=== PATIENT | female | born 1960 | race Caucasian/White ===

== ENCOUNTER 2022-07-15 15:03 | Emergency (ER) | payer OTHER ==
[~2022-07-15] VITALS: Ht 170.2 cm; Wt 106.8 kg
[2022-07-15] MEDS ORDERED: SUCCINYLCHOLINE CHLORIDE 20 MG/ML VIAL IV ONE (15:09)
[2022-07-15] MEDS ORDERED: ROCURONIUM BROMIDE 50 MG/5 ML IV ONE ×2 (15:09)
[2022-07-15] MEDS ORDERED: ETOMIDATE 2 MG/ML VIAL IV ONE ×3 (15:09→18:30)
--- NOTE | 2022-07-15 15:20 | NUR ---
PT IS AWAKE AND FOLLOW COMMANDS PLACED INTO BIPAP DUE TO INCREASED WORK OF BREATHING. BIPAP PARAMETERS BELOW ORDER: IPAP 15 EPAP 5 RR 12 FIO2 60% BREATH SOUNDS DIMINISHED BILATERAL. SPO2 100% ON 60% FIO2 RR 49 BPM BIPAP PLUGGED INTO RED OUTLET WITH ALARMS ON AND FUNCTIONING BVM @ BEDSIDE Addendum: 07/15/22 at 1533 by CAMPOS GRIDER RT Amended: Links added.
--- NOTE | 2022-07-15 15:21 | NUR ---
BIBRA 60 SHORTNESS OF BREATH , LOW ON O2 SAT 80 @ RA . DIALYSIS PATIENT , LAST HD WAS SATURDAY .
--- NOTE | 2022-07-15 15:31 | NUR ---
RT AND X-RAY AT BEDSIDE
--- NOTE | 2022-07-15 15:31 | NUR ---
BLOOD SAMPLES OBTAINED
[2022-07-15] MEDS ORDERED: AMOX1TAB15 PO (15:44)
[2022-07-15] MEDS ORDERED: BISA10SU11 RC (15:44)
[2022-07-15] MEDS ORDERED: NA P133E RC (15:44)
[2022-07-15] MEDS ORDERED: IPRA3AMP23 IH (15:44)
[2022-07-15] MEDS ORDERED: GABA-532 PO (15:44)
[2022-07-15] MEDS ORDERED: MIDO10TA PO (15:44)
[2022-07-15] MEDS ORDERED: DOCU-141 PO (15:44)
[2022-07-15] MEDS ORDERED: HEPA50007 SQ (15:44)
[2022-07-15] MEDS ORDERED: SENN-261 PO (15:44)
[2022-07-15] MEDS ORDERED: SEVE800T28 PO (15:44)
[2022-07-15] MEDS ORDERED: MENT71OI2 TP (15:44)
[2022-07-15] MEDS ORDERED: ACET-868 PO (15:44)
[2022-07-15] MEDS ORDERED: HONE15GE TP (15:44)
[2022-07-15] MEDS ORDERED: OMEP40CA21 PO (15:44)
[2022-07-15] MEDS ORDERED: FLUC200T8 PO (15:44)
[2022-07-15] MEDS ORDERED: TRAM50TA2 PO ×2 (15:44)
[2022-07-15] MEDS ORDERED: LIDO30CR47 TP (15:46)
--- NOTE | 2022-07-15 15:49 | NUR ---
BIPAP SETTING 15/ , 12 RATE , 60% , 100% O2SAT
[2022-07-15 15:58] LABS: BASOPHILS # (AUTO) 0.1 K/uL (0.0-0.2); BASOPHILS % (AUTO) 0.3 % (0.0-2.0); EOSINOPHILS % (AUTO) 1.6 % (0.0-6.0); HEMATOCRIT 35 % (33-45); HEMOGLOBIN 10.9 g/dL (11.5-14.8); LYMPHOCYTES # (AUTO) 2.4 K/uL (0.8-4.8); MEAN CORPUSCULAR HGB CONC 31 g/dl (31.0-36.0); MEAN CORPUSCULAR VOLUME 92 fL (82-100); MONOCYTES # (AUTO) 1.4 K/uL (0.1-1.30); MONOCYTES % (AUTO) 3.6 % (2.0-12.0); NEUTROPHILS # (AUTO) 35.1 K/uL (1.8-8.9); NEUTROPHILS % (AUTO) 88.5 % (43.0-81.0); PLATELET COUNT (AUTO) 461 K/uL (150-450); RED BLOOD CELL COUNT(AUTO) 3.85 MIL/uL (4.0-5.2)
[2022-07-15 16:25] LABS: CALCIUM, SERUM 8.8 mg/dL (8.5-10.1); CARBON DIOXIDE 24 mmol/L (21-32); CREATININE 6.9 mg/dL (0.6-1.3); GLUCOSE 119 mg/dL (74-106); UREA NITROGEN, BLOOD 62 mg/dL (7-18)
[2022-07-15 16:38] LABS: CHLORIDE 93 mmol/L (98-107); SODIUM SERUM 133 mmol/L (136-145)
[2022-07-15 16:42] LABS: POTASSIUM 6.6 mmol/L (3.5-5.1)
[2022-07-15 16:52] VITALS: BP 143/62
--- NOTE | 2022-07-15 16:59 | NUR ---
DIALYSIS SESSION SCHEDULED TODAY BY CATIE ELLIS
--- NOTE | 2022-07-15 17:08 | NUR ---
placed Mepilex between nosebridge and bipap mask to prevent skin breakdown. Addendum: 07/15/22 at 1710 by CAMPOS GRIDER RT Amended: Links added.
[2022-07-15] MEDS ORDERED: CALCIUM CHLORIDE 1,000 MG/10 ML DISP.SYRIN IV ONE (17:30)
[2022-07-15] MEDS ORDERED: DEXTROSE 50%-WATER 50 ML DISP.SYRIN IV ONE (17:30)
[2022-07-15] MEDS ORDERED: SODIUM POLYSTYRENE SULFONATE 15 G/60 ML BOTTLE PO ONE (17:30)
[2022-07-15] MEDS ORDERED: INSULIN REGULAR, HUMAN 100 UNIT/ML 10 ML VIAL IV ONE (17:30)
[2022-07-15 17:33] LABS: WHITE BLOOD COUNT (AUTO) 39.7 K/uL (4.3-11.0)
--- NOTE | 2022-07-15 17:42 | NUR ---
SPOKE WITH PHD [employer] NIMA AT [facility] . SHE STATED SHE WOULD SPEAK WITH HER PHYSICIAN TO SEE IF PATIENT WOULD BE ACCEPTED.
[2022-07-15] MEDS ORDERED: DEXTROSE 50%-WATER 50 ML DISP.SYRIN ONE (17:58)
[2022-07-15] MEDS ORDERED: INSULIN REGULAR, HUMAN 100 UNIT/ML 10 ML VIAL ONE (17:58)
[2022-07-15] MEDS ORDERED: CALCIUM CHLORIDE 1,000 MG/10 ML DISP.SYRIN ONE ×6 (18:00→19:16)
[2022-07-15] MEDS ORDERED: SODIUM BICARBONATE SYR 50 MEQ/50 ML DISP.SYRIN ONE (18:00)
[2022-07-15] MEDS ORDERED: EPINEPHRINE (1:10,000) SYRINGE 1 MG/10 ML DISP.SYRIN ONE ×2 (18:00)
[2022-07-15] MEDS ORDERED: ATROPINE SULFATE 1 MG/10 ML DISP.SYRIN ONE (18:00)
--- NOTE | 2022-07-15 18:14 | NUR ---
PT. INTUBATED BY CRYSTAL MOLINA FOR AIRWAY PROTECTION. CO2 DETECTOR CHANGED TO YELLOW COLOR POST INTUBATION. BREATH SOUNDS CLEAR BILATERAL WITH SYMMETRICAL CHEST RISE POST INTUBATION VENT SETTINGS BELOW ORDER: AC 18 VT 500 ML FIO2 60% PEEP +5 BREATH SOUNDS CLEAR BILATERAL VENT PLUGGED INTO RED OUTLET WITH ALARMS ON AND FUNCTIONING. BVM @ BEDSIDE. Addendum: 07/15/22 at 1838 by CAMPOS GRIDER RT Amended: Links added.
--- NOTE | 2022-07-15 18:20 | NUR ---
Etomidide 30 mg IV given @ 1810 and rocuronium 100 mg IV given @ 1812 per order
--- NOTE | 2022-07-15 18:21 | NUR ---
Patient intubated @ 1814 7.5 mm tube, 23 cm depth
[2022-07-15] MEDS ORDERED: CEFEPIME 1 GM in IV D5W 50 ML IV ONE (18:30)
[2022-07-15] MEDS ORDERED: MIDAZOLAM HCL 50 MG in IV NS 0.9% 40 ML IV PRN (18:30)
[2022-07-15] MEDS ORDERED: FENTANYL CITRAT IV 2,500 MCG in IV NS 0.9% 200 ML IV PRN (18:30)
[2022-07-15] MEDS ORDERED: ROCURONIUM BROMIDE 100 MG/10 ML VIAL IV ONE (18:30)
[2022-07-15] MEDS ORDERED: VANCOMYCIN 1 GM in IV D5W 250 ML IV ONE (18:30)
[2022-07-15] MEDS ORDERED: NOREPINEPHRINE 4 MG/4 ML AMPUL IV ONE (19:14)
--- NOTE | 2022-07-15 19:29 | NUR ---
Patient pronounced by
[2022-07-15] MEDS ORDERED: NOREPINEPHRINE 8 MG in IV NS 0.9% 242 ML IV PRN (19:30)
[2022-07-15] MEDS ORDERED: Sodium Bicarbonate 150 MEQ in IV NS 0.9% 1,000 ML IV PRN (19:30)
--- NOTE | 2022-07-15 19:45 | NUR ---
Endorsed remaining patient medications to JESU Horton who confirmed no medication had been used or tampered with
--- NOTE | 2022-07-15 19:49 | NUR ---
[facility] NOTIFIED. REFERRAL ID NUMBER: [id number] SPOKE TO GEOVANY
--- NOTE | 2022-07-15 20:14 | NUR ---
SPOKE TO KARI FROM [facility]. SHE INFORMED ME THAT THE PATIENT IS NOT A CANDIDATE FOR [employer]. ID REFERRAL NUMBER. [id number]
--- NOTE | 2022-07-15 21:24 | NUR ---
BODY WAS TRANSFERRED TO [facility] PER FAMILY'S CONSENT
--- NOTE | 2022-07-15 21:24 | NUR ---
Todd wilson in [facility] [place] - 07/15/22 at 2252 by WALDO body transferred to the morgue per family consent.
[2022-07-15 22:12] LABS: BAND % (MANUAL) 2 % (0.0-5.0); LYMPHOCYTES % (MANUAL) 7 % (16-48); MONOCYTES % (MANUAL) 8 % (0-11.0); NEUTROPHILS % (MANUAL) 83 (42-76)
== END 2022-07-15 20:41 ==
LOC: ER 15:08
DX: A41.9 Sepsis, unspecified organism (principal); R65.20 Severe sepsis without septic shock; J96.90 Respiratory failure, unspecified, unspecified whether with hypoxia or hypercapnia; N18.6 End stage renal disease; E87.5 Hyperkalemia; E87.70 Fluid overload, unspecified; Z20.822 Contact with and (suspected) exposure to COVID-19
CPT/HCPCS: 99291; 92950; 31500; 96374; 96375; 71045 ×2; 87426; 84145; 85025; 80048; 83605; 36415; 84484; 87081; 96372; 93005 ×2; 85007; J3490 ×3; J0171; J1815; J7030; J7050; A4223; C9803; J0330; J0461; J0692; J2250; J3010; J3370; J7060